=== PATIENT | male | born 1995 | race Caucasian/White ===

== ENCOUNTER 2018-10-08 08:53 | Emergency (ER) | payer OTHER ==
[2018-10-08] MEDS ORDERED: Pantoprazole IV* 40 MG IV ONE (08:59)
[2018-10-08] MEDS ORDERED: Sucralfate TAB* 1 GM PO ONE (08:59)
--- NOTE | 2018-10-08 09:07 | ED ---
Child At Risk - History Of Current Complaint Chief Complaint: EDChestPainROMI Stated Complaint: CHEST PAIN - Allergies/Home Medications Allergies/Adverse Reactions: Allergies Allergy/AdvReac Type Severity Reaction Status Date / Time No Known Allergies Allergy Verified 10/08/18 08:58 PMH/Surg Hx/FS Hx/Imm Hx Infectious Disease History: No Infectious Disease History: Denies: Traveled Outside the [place] in Last 30 Days - Social History Alcohol Use: Weekly Alcohol Amount: drank 1 beer last night Substance Use Type: Reports: Marijuana Smoking Status (MU): Never Smoked Tobacco Physical Exam Vital Signs On Initial Exam: Initial Vitals Temp Pulse Resp BP Pulse Ox 97.2 F 70 20 159/98 100 10/08/18 08:56 10/08/18 08:56 10/08/18 08:56 10/08/18 08:56 10/08/18 08:56 Diagnostics - Vital Signs Vital Signs Temp Pulse Resp BP Pulse Ox 10/08/18 08:56 97.2 F 70 20 159/98 100 - Laboratory Lab Statement: Any lab studies that have been ordered have been reviewed, and results considered in the medical decision making process. - Attestation Statements Document Initiated by Scribe: Yes Documenting Scribe: Elliot Bateman Provider For Whom Scribe is Documenting (Include Credential): Sorin Nicole MD Scribe Attestation: Elliot Rios , scribed for Sorin Nicole MD on 10/08/18 at 0907.
--- NOTE | 2018-10-08 09:11 | ED ---
HPI Chest Pain - HPI Summary HPI Summary: This patient is a 23 year old male brought in by EMS complain of chest pain that began at 0800 and woke him up. The patient rates the pain 10/10 in severity and describes it as a sharp pain. When questioned on what aggravates the pain he states that everything does. He states at 2200 last night he had a sandwich with a large amount of sriracha and a beer, after this he went to bed at 0230. He states he is not nauseated, light headed, or diaphoretic. He took two antacids without relief. Pt states during exam this has happened before and the only thing that helped was morphine. - History of Current Complaint Chief Complaint: EDChestPainROMI Hx Obtained From: Patient Onset/Duration: Still Present Time of Onset: 08:00 Timing: Constant Initial Severity: Severe Current Severity: Severe Pain Intensity: 10 Pain Scale Used: 0-10 Numeric Chest Pain Location: Diffuse Chest Pain Radiates: No Character: Sharp/Stabbing Aggravating Factor(s): Other: - everything Associated Signs and Symptoms: Positive: Negative - nausea - Allergy/Home Medications Allergies/Adverse Reactions: Allergies Allergy/AdvReac Type Severity Reaction Status Date / Time No Known Allergies Allergy Verified 10/08/18 08:58 PMH/Surg Hx/FS Hx/Imm Hx Cardiovascular History: Denies: Hx Atrial Fibrillation, Hx Cardiomegaly, Hx Congenital Heart Disease , Hx Deep Vein Thrombosis, Hx Hypotension Respiratory History: Denies: Hx Bronchopulmonary Dysplasia, Hx Lung Cancer, Hx Pleural Effusion, Hx Pulmonary Edema, Hx Pulmonary Embolism History: Denies: Hx Benign Prostatic Hyperplasia, Hx Chronic Renal Failure Neurological History: Denies: Hx Spinal Cord Injury, Hx Transient Ischemic Attacks (TIA) Infectious Disease History: No Infectious Disease History: Denies: Traveled Outside the [place] in Last 30 Days - Family History Known Family History: Negative: Respiratory Disease, Seizure Disorder - Social History Alcohol Use: Weekly Alcohol Amount: drank 1 beer last night Substance Use Type: Reports: Marijuana Smoking Status (MU): Never Smoked Tobacco Review of Systems Negative: Skin Diaphoresis Positive: Chest Pain Negative: Nausea Neurological: Negative - light headedness All Other Systems Reviewed And Are Negative: Yes Physical Exam - Summary Physical Exam Summary: Appearance: The patient is well-nourished in no acute distress and in no acute pain. Skin: The skin is warm and dry and skin color reflects adequate perfusion. HEENT: The head is normocephalic and atraumatic. The pupils are equal and reactive. The conjunctivae are clear and without drainage. Nares are patent and without drainage. Mouth reveals moist mucous membranes and the throat is without erythema and exudate. The external ears are intact. The ear canals are patent and without drainage. The tympanic membranes are intact. Neck: The neck is supple with full range of motion and non-tender. There are no carotid bruits. There is no neck vein distension. Respiratory: Chest is non-tender. Lungs are clear to auscultation and breath sounds are symmetrical and equal. Cardiovascular: Heart is regular rate and rhythm. There is no murmur or rub auscultated. There is no peripheral edema and pulses are symmetrical and equal. Abdomen: The abdomen is soft and ttp in epigastrium. There are normal bowel sounds heard in all four quadrants and there is no organomegaly palpated. Musculoskeletal: There is no back tenderness noted. Extremities are non-tender with full range of motion. There is good capillary refill. There is no peripheral edema or calf tenderness elicited. Neurological: Patient is alert and oriented to person, place and time. The patient has symmetrical motor strength in all four extremities. Cranial nerves are grossly intact. Deep tendon reflexes are symmetrical and equal in all four extremities. Psychiatric: The patient has an appropriate affect and does not exhibit any anxiety or depression. Triage Information Reviewed: Yes Vital Signs On Initial Exam: Initial Vitals Temp Pulse Resp BP Pulse Ox 97.2 F 70 20 159/98 100 10/08/18 08:56 10/08/18 08:56 10/08/18 08:56 10/08/18 08:56 10/08/18 08:56 Vital Signs Reviewed: Yes Diagnostics - Vital Signs Vital Signs Temp Pulse Resp BP Pulse Ox 10/08/18 08:56 97.2 F 70 20 159/98 100 - Laboratory Result Diagrams: 10/08/18 09:23 10/08/18 09:23 Lab Statement: Any lab studies that have been ordered have been reviewed, and results considered in the medical decision making process. - Radiology CXR Radiology Interpretation Completed By: Radiologist Summary of Radiographic Findings: No active cardiopulmonary disease. Dr. Nicole has reviewed this report. - EKG 0902 Cardiac Rate: Bradycardia - at 58 BPM Summary of EKG Findings: Normal sinus rhythm, normal ST, no ectopy, no STEMI Re-Evaluation - Re-Evaluation First Eval Re-Evaluation Time: 10:00 Change: Improved Comment: The patient states he is feeling better and needs to be discharged so he can go to class. Chest Pain Course/Dx - Course Course Of Treatment: Mr. Sanchez presented having been awakened in the middle of the night with epigastric pain that has continued unabated. He was tender in the epigastrium although nontoxic in appearance with stable vitals. His workup was negative and he improved with GI meds and requested discharge. - Diagnoses Provider Diagnoses: GERD (gastroesophageal reflux disease) Discharge - Sign-Out/Discharge Documenting (check all that apply): Patient Departure - Discharge Plan Condition: Stable Disposition: HOME Patient Education Materials: Epigastric Pain (ED) Referrals: [facility] - [facility] [Z.[email or web address], APPLICATION, OTHER] - 2 Days Additional Instructions: RETURN TO THE EMERGENCY DEPARTMENT FOR CHANGING OR WORSENING SYMPTOMS - Billing Disposition and Condition Condition: STABLE Disposition: Home - Attestation Statements Document Initiated by Livia: Yes Documenting Scribe: Elliot Bateman Provider For Whom Innaibe is Documenting (Include Credential): Sorin Nicole MD Scribe Attestation: IElliot , scribed for Sorin Nicole MD on 10/08/18 at 1814. Scribe Documentation Reviewed: Yes Provider Attestation: The documentation as recorded by the Elliot garland accurately reflects the service I personally performed and the decisions made by me, Sorin Nicole MD Status of Scribe Document: Viewed
[2018-10-08 09:36] LABS: ABS Basophils 0 10^3/ul (0-0.2); ABS Eosinophils 0.3 10^3/ul (0-0.6); ABS Lymphocytes 1.4 10^3/ul (1.0-4.8); ABS Monocytes 0.4 10^3/ul (0-0.8); ABS Neutrophils 5.7 10^3/ul (1.5-7.7); ABS Nucleated RBC 0 10^3/ul; Eosinophil % 4.3 %; Hematocrit 43 % (42-52); Hemoglobin 14.7 g/dl (14.0-18.0); Lymphocyte % 17.8 %; Mean Corpuscular HGB Conc 34 g/dl (31-36); Mean Corpuscular Hemoglobin 34 pg (27-31); Mean Corpuscular Volume 99 fL (80-94); Mean Platelet Volume 8.2 fL (7.4-10.4); Nucleated Red Blood Cells % 0; Platelet Count 290 10^3/ul (150-450); Red Cell Distribution Width 13 % (10.5-15); White Blood Count 7.8 10^3/ul (3.5-10.8)
[2018-10-08 09:52] LABS: Albumin 4.1 g/dL (3.2-5.2); Albumin/Globulin Ratio 1.4 (1-3); BUN/Creatinine Ratio 16.3 (8-20); Calcium 9.4 mg/dL (8.6-10.3); EGFR African American 124.5 (>60); EGFR Non-African American 102.9 (>60); Potassium 4.1 mmol/L (3.5-5.0); Total Bilirubin 0.7 mg/dL (0.2-1.0); Total Protein 7.1 g/dL (6.4-8.9)
[2018-10-08 10:36] VITALS: BP 123/81
== END 2018-10-08 10:39 | disposition home or self-care (01) ==
LOC: ED 08:53
DX: K21.9 Gastro-esophageal reflux disease without esophagitis (principal)
CPT/HCPCS: 36415; 71045; 80053; 83605; 84484; 85025; 93005; 96374; 99283; A9270-GY